=== PATIENT | female | born 1980 | race Caucasian/White ===

== ENCOUNTER 2016-11-28 22:59 | Inpatient (IN) | payer OTHER ==
[~2016-11-28] VITALS: Ht 154.9 cm; Wt 59.5 kg
[2016-11-28 23:20] VITALS: BP 104/57
[2016-11-28] MEDS ORDERED: FOLI1TAB16 PO (23:34)
[2016-11-28] MEDS ORDERED: MULT1TAB52 PO (23:34)
[2016-11-29] VITALS (12 sets, daily range): BP systolic 82–106; BP diastolic 10–60
[2016-11-29] MEDS: IV NORMAL SALINE 1000ML BAG 1,000 ML IV SCH ×2 (00:15→08:39)
[2016-11-29 05:31] LABS: HEMATOCRIT 34.1 % (36.0-47.0); HEMOGLOBIN 11.6 g/dL (12.0-15.5); RED BLOOD COUNT 3.88 x10^6/uL (3.50-5.40); WHITE BLOOD COUNT 9.6 x10^3/uL (4.0-11.0)
[2016-11-29 05:43] LABS: CALCIUM 8.2 mg/dL (8.5-10.1); CREATININE 0.5 mg/dL (0.6-1.0); GFR 141.2; POTASSIUM 3.7 mmol/L (3.5-5.1)
[2016-11-29] MEDS ORDERED: BUPIVACAINE-EPI 0.5%-1:200000 50 ML VIAL. ONE (06:54)
--- NOTE | 2016-11-29 07:55 | PDOC1 ---
History and Physical Date of Admission Date of Admission DATE: 11/29/16 TIME: 07:51 Identification/Chief Complaint Chief Complaint Abdominal pain Problems: Source Source: Patient History of Present Illness History of Present Illness 36 yo female developed right lower quadrant abdominal pain yesterday. Seen in the [facility] ED where CT of the abdomen was preformed showing dilated appendix with inflammation. Past Medical History Cardiovascular: No pertinent hx Pulmonary: No pertinent hx GI: No pertinent hx Heme/Onc: No pertinent hx Hepatobiliary: No pertinent hx Psych: No pertinent hx Rheumatologic: No pertinent hx Infectious disease: No pertinent hx ENT: No pertinent hx Renal/: No pertinent hx Endocrine: No pertinent hx Dermatology: No pertinent hx Past Surgical History Past Surgical History: Other (C section, breast augmentation) Family History Family History: Other (cousin with malignant hyperthermia) Social History Smoke: No ALCOHOL: none Drugs: None Current Medications Current Medications Current Medications Sodium Chloride 1,000 ml @ 125 mls/hr Q8H IV Last administered on 11/29/16 00 :15; Start 11/29/16 at 00:00 Ondansetron HCl (Zofran) 4 mg PRN Q6HRS PRN IV NAUSEA/VOMITING Last administered on 11/29/16 00:15; Start 11/29/16 at 00:00 Prochlorperazine Edisylate (Compazine) 10 mg PRN Q6HRS PRN IV NAUSEA/VOMITING; Start 11/29/16 at 00:00 Fentanyl Citrate (Fentanyl 2ml Vial) 75 mcg PRN Q2HR PRN IV SEVERE PAIN; Start 11/29/16 at 00:00 Fentanyl Citrate (Fentanyl 2ml Vial) 50 mcg PRN Q2HR PRN IV MODERATE PAIN; Start 11/29/16 at 00:00 Morphine Sulfate 2 mg PRN Q2HR PRN IV SEVERE PAIN Last administered on 00:15; Start 11/29/16 at 00:00 Cefazolin Sodium/ Dextrose 50 ml @ 100 mls/hr PREOP PRN PRN IV PREOP; Start 11/29/16 at 07:00; Stop 11/30/16 at 06:59 Active Scripts Active Reported Folic Acid 1 Mg Tablet 1 Tab PO DAILY Multivitamins (Multivitamin) 1 Each Tablet 1 Tab PO DAILY Allergies Allergies: Coded Allergies: No Known Drug Allergies (Unverified , 11/28/16) ROS Gastrointestinal: Yes Nausea, Yes Abdominal Pain Physical Exam General: Alert, Oriented X3, Cooperative, mild distress HEENT: Atraumatic, EOMI Lungs: Clear to auscultation, Normal air movement Heart: RRR, no murmurs Abdomen: Normal bowel sounds, Soft, Other (TTP RLQ) Rectal Exam: not examined Extremities: No clubbing, No edema Skin: No significant lesion Neuro: Normal speech Psych/Mental Status: Mental status NL Vitals Vitals Vital Signs Date Time Temp Pulse Resp B/P (MAP) Pulse Ox O2 Delivery O2 Flow Rate FiO2 11/29/16 00:48 100 Room Air 11/29/16 00:15 20 11/28/16 23:20 98.1 89 104/57 (73) 98.1 Labs Labs Laboratory Tests Test 11/29/16 05:05 11/29/16 05:06 White Blood Count 9.6 x10^3/uL (4.0-11.0) Red Blood Count 3.88 x10^6/uL (3.50-5.40) Hemoglobin 11.6 g/dL (12.0-15.5) Hematocrit 34.1 % (36.0-47.0) Mean Corpuscular Volume 88 fL (79-100) Mean Corpuscular Hemoglobin 30 pg (25-35) Mean Corpuscular Hemoglobin Concent 34 g/dL (31-37) Red Cell Distribution Width 13.0 % (11.5-14.5) Platelet Count 178 x10^3/uL (140-400) Sodium Level 142 mmol/L (136-145) Potassium Level 3.7 mmol/L (3.5-5.1) Chloride Level 108 mmol/L (98-107) Carbon Dioxide Level 29 mmol/L (21-32) Anion Gap 5 (6-14) Blood Urea Nitrogen 9 mg/dL (7-20) Creatinine 0.5 mg/dL (0.6-1.0) Estimated GFR (Cockcroft-Gault) 141.2 Glucose Level 92 mg/dL (70-99) Calcium Level 8.2 mg/dL (8.5-10.1) Laboratory Tests Test 11/29/16 05:05 11/29/16 05:06 White Blood Count 9.6 x10^3/uL (4.0-11.0) Red Blood Count 3.88 x10^6/uL (3.50-5.40) Hemoglobin 11.6 g/dL (12.0-15.5) Hematocrit 34.1 % (36.0-47.0) Mean Corpuscular Volume 88 fL (79-100) Mean Corpuscular Hemoglobin 30 pg (25-35) Mean Corpuscular Hemoglobin Concent 34 g/dL (31-37) Red Cell Distribution Width 13.0 % (11.5-14.5) Platelet Count 178 x10^3/uL (140-400) Sodium Level 142 mmol/L (136-145) Potassium Level 3.7 mmol/L (3.5-5.1) Chloride Level 108 mmol/L (98-107) Carbon Dioxide Level 29 mmol/L (21-32) Anion Gap 5 (6-14) Blood Urea Nitrogen 9 mg/dL (7-20) Creatinine 0.5 mg/dL (0.6-1.0) Estimated GFR (Cockcroft-Gault) 141.2 Glucose Level 92 mg/dL (70-99) Calcium Level 8.2 mg/dL (8.5-10.1) Images Images CT as in HPI VTE Prophylaxis Ordered VTE Prophylaxis Devices: Yes VTE Pharmacological Prophylaxi: Contraindicated Assessment/Plan Assessment/Plan Acute appendicitis Plan L/S appendectomy today LEROY LYN MD Nov 29, 2016 07:55
[2016-11-29] MEDS ORDERED: BACITRACIN 50,000 UNIT in IV NORMAL SALINE 500ML BAG 500 ML IRR ONE (08:00)
[2016-11-29] MEDS ORDERED: PROPOFOL 100 ML IV ONE (08:05)
[2016-11-29] MEDS ORDERED: fentaNYL PF VIAL 250 MCG/5 ML VIAL ONE (09:00)
[2016-11-29] MEDS ORDERED: MIDAZOLAM HCL/PF 2 MG/2 ML VIAL. ONE (09:00)
[2016-11-29] MEDS ORDERED: fentaNYL PF VIAL 100 MCG/2 ML VIAL ONE (09:05)
[2016-11-29] MEDS ORDERED: ROCURONIUM 100 MG/10 ML VIAL. ONE (09:06)
[2016-11-29] MEDS ORDERED: PROPOFOL 20 ML IV ONE (09:36)
[2016-11-29] MEDS ORDERED: DEXAMETHASONE SOD PHOS 20 MG/5 ML VIAL. ONE (09:36)
[2016-11-29] MEDS ORDERED: ONDANSETRON PF 4 MG/2 ML VIAL. ONE (09:36)
[2016-11-29] MEDS ORDERED: LIDOCAINE 2% PF Vial for OR 5 ML VIAL. ONE (09:36)
[2016-11-29] MEDS ORDERED: GLYCOPYRROLATE 1 MG/5 ML VIAL. ONE (09:40)
[2016-11-29] MEDS ORDERED: NEOSTIGMINE METHYLSULFATE 5 MG/5 ML SYRINGE. ONE (09:41)
--- NOTE | 2016-11-29 09:53 | PDOC4 ---
Operative Note Operative Note Date 11/29/2016 Preoperative diagnosis: Acute appendicitis Postoperative diagnosis: Same Procedure: Laparoscopic appendectomy Surgeon: Céasr Specimen: Appendix Dictation: Patient is a 36-year-old female who's had 24-hour history of right lower quadrant abdominal pain and a CT scan of the abdomen showing inflamed appendix consistent with acute appendicitis. The procedure of laparoscopic appendectomy was explained to the patient in detail was benefits were also discussed including bleeding infection injury to intra-abdominal contents possibly necessitating further or open operations. The patient seemed understanding gave both verbal and written consent to have the procedure performed. Patient was taken to the operating room placed in the supine position general anesthesia was initiated once patient was asleep and intubated her abdomen was prepped and draped in the usual sterile fashion using ChloraPrep. An area at the umbilicus was injected with 1% lidocaine with epinephrine and an incision was made with 11 blade scalpel and a varies needle was placed within the abdomen creating a pneumoperitoneum. Once this was complete a 12 mm port was placed and a Paired [employer] camera was placed within the abdomen was noted that she had some adhesions to her previous scar as well as some inflammation the right lower quadrant. A 5 mm port was placed in the right mid abdomen and using Endo Teresa scissors the adhesions were taken down. A 5 mm port was placed under direct realization low in the midline of the pelvis. The appendix was grasped and freed up from its lateral attachments with Endo Teresa scissors a window was propagated in the mesial appendix with a [place] dissector at the base the appendix and Endo MELISSA stapler was used to staple and transect the base the appendix. A second load was used to staple and transect the mesoappendix there was a small bleeder within the mesial appendix this was controlled with a 10 mm clip. The appendix was placed within an Endo Catch bag and removed from the umbilicus. Right lower quadrant and pelvis were irrigated and suctioned dry hemostasis deemed to be appropriate and the pneumoperitoneum was reduced all ports removed fascial defect of the umbilicus closed [id number] Vicryl suture and the skin was approximated all port sites 4 subcuticular Monocryl Mastisol Steri-Strips and Band-Aids were applied as dressings. Awakened and extubated in the operating room taken recovery in stable condition all sponge instrument and needle counts listed as correct. Estimated blood loss 20 mL LEROY LYN MD Nov 29, 2016 09:53
[2016-11-29] MEDS ORDERED: IV RINGERS,LACTATED 1000ML 1,000 ML IV SCH (09:57)
[2016-11-29] MEDS ORDERED: KETOROLAC 30 MG/ML INJ. ONE (09:58)
[2016-11-29] MEDS ORDERED: ONDANSETRON PF 4 MG/2 ML VIAL. IV PRN ×3 (10:00)
[2016-11-29] MEDS ORDERED: MORPHINE SULFATE 2 MG/ML DISP.SYRIN. IV PRN ×2 (10:00)
[2016-11-29] MEDS ORDERED: fentaNYL PF VIAL 100 MCG/2 ML VIAL IV PRN ×3 (10:00)
[2016-11-29] MEDS ORDERED: PROCHLORPERAZINE 10 MG/2 ML VIAL. IV PRN ×2 (10:00)
[2016-11-29] MEDS ORDERED: 0.9 % SODIUM CHLORIDE 10 ML DISP.SYRIN. IV PRN (10:00)
[2016-11-29] MEDS ORDERED: LIDOCAINE 1% PF 2 ML VIAL. ID PRN (10:00)
[2016-11-29] MEDS ORDERED: oxyCODONE/APAP 5/325 1 TAB TABLET PO PRN (10:00)
[2016-11-29] MEDS ORDERED: HYDROmorphone 2 MG/ML VIAL IV PRN (10:00)
[2016-11-29] MEDS: fentaNYL PF VIAL 100 MCG/2 ML VIAL IV PRN ×2 (10:12→10:31)
[2016-11-29] MEDS ORDERED: KETOROLAC 30 MG/ML INJ. IV ONE (10:15)
[2016-11-29] MEDS ORDERED: MORPHINE SULFATE 4 MG/ML DISP.SYRIN. IV PRN ×2 (10:15)
[2016-11-29] MEDS ORDERED: MORPHINE SULFATE 4 MG/ML DISP.SYRIN. IV ONE (10:15)
[2016-11-29] MEDS ORDERED: IV DEXTROSE 5%-LACT RINGERS 1,000 ML IV SCH (10:30)
[2016-11-29] MEDS ORDERED: ACETAMINOPHEN 325 MG TABLET. PO PRN (14:00)
[2016-11-29] MEDS ORDERED: PHENOL ORAL SPRAY 177ML BOTTLE. PO PRN (20:00)
[2016-11-29] MEDS ORDERED: BENZOCAINE/MENTHOL LOZENGE. PO PRN (20:00)
[2016-11-29] MEDS: oxyCODONE/APAP 5/325 1 TAB TABLET PO PRN (23:10)
[2016-11-30 03:00] VITALS: BP 100/46
[2016-11-30 04:34] LABS: BASO % 0 % (0-3); EOS % 0 % (0-3); HEMOGLOBIN 10.7 g/dL (12.0-15.5); LYMPH # 1.9 x10^3/uL (1.0-4.8); LYMPH % 19 % (24-48); MEAN CORPUSCULAR HEMOGLOBIN 30 pg (25-35); MEAN CORPUSCULAR HGB CONC 34 g/dL (31-37); MEAN CORPUSCULAR VOLUME 90 fL (79-100); MONO % 6 % (0-9); NEUT % 75 % (31-73); PLATELET COUNT 163 x10^3/uL (140-400); RED BLOOD COUNT 3.57 x10^6/uL (3.50-5.40); RED CELL DISTRIBUTION WIDTH 13.2 % (11.5-14.5); WHITE BLOOD COUNT 10.2 x10^3/uL (4.0-11.0)
[2016-11-30] MEDS: oxyCODONE/APAP 5/325 1 TAB TABLET PO PRN (06:20)
[2016-11-30 07:00] VITALS: BP 125/44
[2016-11-30 11:00] VITALS: BP 108/70
--- NOTE | 2016-11-30 11:16 | DISCH ---
DISCHARGE INSTRUCTIONS Condition on Discharge Condition on Discharge: Stable Activity After Discharge Activity Instructions for Disc: Avoid exertion Other activity instructions: No lifting >20lbs for 2 weeks Diet after Discharge Diet after Discharge: Regular Wound Incision Care Other wound/incision instructi: Lilly douglas starting today Contacting the after DC Call your doctor for: If your condition worsens Follow-Up Follow up with: Dr Lyn in 2 weeks LEROY LYN MD Nov 30, 2016 11:16
--- NOTE | 2016-11-30 11:21 | PDOC3 ---
Discharge Summary IPC Date of Admission: Nov 29, 2016 Discharge Date: Nov 30, 2016 Admitting Diagnosis Acute appendicitis Problems: Final Diagnosis Same CONSULTS None Procedures L/S Appendectomy Brief Hospital Course Ms. Chirinos is a 36 old female admitted with acute appendicitis. She underwent L/S appendectomy without problems. Post op coarse uneventful, tolerating diet and being discharged to home in good condition. Problems: Disposition Home CONDITION AT DISCHARGE: Improved Diet Regular Scheduled Folic Acid (Folic Acid), 1 TAB PO DAILY, (Reported) Multivitamin (Multivitamins), 1 TAB PO DAILY, (Reported) Follow Up Dr Lyn in 2 weeks Patient Instructions See discharge LEROY LYN MD Nov 30, 2016 11:21
--- NOTE | 2016-12-02 13:57 | PATHOLOGY ---
PATHOLOGY REPORT * * * * * * * * FINAL DIAGNOSIS: Appendix, laparoscopic appendectomy: - Acute appendicitis. (JPM:pit; 12/02/2016) COMMENT: There is no evidence of rupture. (JPM:pit; 12/02/2016) REPORT ELECTRONICALLY SIGNED BY: Griffin Staley M.D. DATE/TIME: 12/02/2016 13:45 * * * * * * * * GROSS PATHOLOGY: Received in formalin labeled "varinder Cardoso," is an appendix measuring 6.5 cm in length and up to 1.4 cm in diameter with a minimal amount of attached mesoappendix. The serosal surface is pale de la torre, glistening in appearance. Sectioning reveals a patent to dilated lumen filled with fibrinopurulent exudate admixed with clear mucoid material. Visiting Professor sections are submitted in cassette A1 and A2, with the proximal margin and bisected tip submitted in cassette A1. (CAA; 12/01/2016) INITIAL CPT CODE(S): A; 10208 Professional services performed [place] [facility] [address] Technical services performed by [facility] at [address] [place] [address]. SPECIMEN(S) RECEIVED: A.Appendix CLINICAL HISTORY: Appendicitis PATIENT: ADÁN PARKER /AGE: 103/12/1980 (Age: 36) PATIENT #: [id number] ALT CASE #: SPECIMEN COLLECTION DATE: 11/29/2016 SPECIMEN RECEIVED DATE: 11/30/2016 [facility] - [id number] [place] [address] - PHONE: [phone] * * * END OF REPORT * * *
== END 2016-11-30 13:09 | disposition home or self-care (01) | DRG 340 ==
LOC: 4 NORTH 22:59
PROVIDERS: ADMIT Surgery; ATTEND Surgery
PROC: 0DTJ4ZZ Resection of Appendix, Percutaneous Endoscopic Approach (ICD-10-PCS; principal; 2016-11-29 09:00)
DX: K35.3 Acute appendicitis with localized peritonitis (principal)
CPT/HCPCS: 36415; 80048; 85025; 85027; 88304; C1769; J0690; J0780; J1100; J1885; J2250; J2270; J2405; J2704; J2710; J3010; J3490; J7030; J7120; J2001